=== PATIENT | female | born 1980 | race Caucasian/White ===

== ENCOUNTER 2018-12-06 09:24 | Emergency (ER) | payer OTHER, SELFPAY ==
[2018-12-06 09:25] VITALS: BP 162/93; PULSE 88; RESP 20; TEMP 36.6; O2SAT 98; BMI 24.3
--- NOTE | 2018-12-06 09:48 | RAD_ITS ---
STUDY: X-RAY - CERVICAL SPINE REASON FOR EXAM: Female, 38 years old. Neck pain. TECHNIQUE: 3 view(s) of the cervical spine were obtained. COMPARISON: None FINDINGS: Normal anterior atlantoaxial articulation. Normal odontoid process. There is straightening of the normal cervical lordosis. Normal vertebral bodies and endplates. Normal disc space heights. Normal visualized intervertebral neuroforamina. The soft tissue structures are unremarkable. RAD/Cerv Spine 2 or 3 Views IMPRESSION: Straightening of the normal cervical lordosis. Electronically Signed: Jonas Mckenna MD at 11:13 EST Tel [phone], Service support ,
--- NOTE | 2018-12-06 11:33 | ED.VISSUMM ---
- ER Visit Summary Date of Service: 12/06/18 Chief Complaint: Arm pain History of Present Illness: The patient is a 38 F with left arm pain. This is the third day. It seems worse today. She reports a heaviness in her left arm and tingling down her hand. The pain starts in her left trapezius muscle and radiates down her arm. Worse with moving and typing. She tried Motrin with no improvement. She slept on her neck weird a couple weeks ago and did some aerial yoga recently, but denies any other inciting factors or trauma. No chest pain or shortness of breath. No other weakness or numbness. No rash. Physical Examination: Afebrile and vital signs unremarkable except for a blood pressure of 162/93. No acute distress. HEENT exam shows normal inspection. Neck shows normal inspection and is nontender. She does have some tenderness to palpation over her left trapezius region. Arm is otherwise unremarkable. Good range of motion. Compartments soft. Skin intact. Capillary refill normal. Pulses normal. Good strength. She does have some subjective hand paresthesias. Heart regular. Lungs clear. Test Results: X-rays show straightening of the cervical lordosis but were otherwise unremarkable. Emergency Department Course and Treatment: Patient likely has a radicular pain. She declined pain medicine here. She will continue ibuprofen 800 mg 3 times a day at home. We will add prednisone and Percocet. Her prescription database report was unremarkable. She was referred to primary care follow-up. She may need further imaging or nerve testing as an outpatient. Return for any new or worsening issues. Treatment Plan: As above Disposition: Discharged Impression: 1. Left arm pain This note was generated with [employer] dictation software. It may contain incorrect words, spelling, and punctuation that were not noted in review of the chart prior to signing ED Disposition - Plan for ED Patient: Chief Complaint: General Illness Referrals: No Bustos MD [Primary Care Provider] -
--- NOTE | 2018-12-06 11:36 | ED.DCSUM_ITS ---
- ER Visit Summary Date of Service: 12/06/18 Chief Complaint: Arm pain History of Present Illness: The patient is a 38 F with left arm pain. This is the third day. It seems worse today. She reports a heaviness in her left arm and tingling down her hand. The pain starts in her left trapezius muscle and r adiates down her arm. Worse with moving and typing. She tried Motrin with no improvement. She slept on her neck weird a couple weeks ago and did some aerial yoga recently, but denies any other inciting factors or trauma. No chest pain or shortness of breath. No other weakness or numbness. No rash. Physical Examination: Afebrile and vital signs unremarkable except for a blood pressure of 162/93. No acute distress. HEENT exam shows normal inspection. Neck shows normal inspection and is nontender. She does have some tenderness to palpation over her left trapezius region. Arm is otherwise unremarkable. Good range of motion. Compartments soft. Skin intact. Capillary refill normal. Pulses normal. Good strength. She does have some subjective hand paresthesias. Heart regular. Lungs clear. Test Results: X-rays show straightening of the cervical lordosis but were otherwise unremarkable. Emergency Department Course and Treatment: Patient likely has a radicular pain. She declined pain medicine here. She will continue ibuprofen 800 mg 3 times a day at home. We will add prednisone and Percocet. Her prescription database report was unremarkable. She was referred to primary care follow-up. She may need further imaging or nerve testing as an outpatient. Return for any new or worsening issues. Treatment Plan: As above Disposition: Discharged Impression: 1. Left arm pain This note was generated with [employer] dictation software. It may contain incorrect words, spelling, and punctuation that were not noted in review of the chart prior to signing ED Disposition - Plan for ED Patient: Chief Complaint: General Illness Referrals: No Bustos MD [Primary Care Provider] -
--- NOTE | 2018-12-06 11:36 | ED.DEP ---
ED Disposition - Plan for ED Patient: Chief Complaint: General Illness Instructions: ED Cervical Radiculopathy Prescriptions: Oxycodone HCl/Acetaminophen [Percocet 5/325] 1 tab PO Q6H PRN PRN 3 Days #12 tab PRN Reason: Pain Prednisone 10 mg PO UD #33 tab Referrals: No Bustos MD [Primary Care Provider] -
== END 2018-12-06 11:44 | disposition home or self-care (01) ==
PROVIDERS: Emergency Provider Emergency Medicine; Family Provider Family Medicine; PCP Family Medicine
DX: M79.602 Pain in left arm (principal); M54.2 Cervicalgia; R20.2 Paresthesia of skin; M40.50 Lordosis, unspecified, site unspecified
CPT/HCPCS: 72040; 99282

== ENCOUNTER → 2019-09-13 16:50 | Outpatient (CLI) | payer OTHER, SELFPAY | PROVIDERS: Visit Provider Obstetrics & Gynecology | DX: Z12.4 Encounter for screening for malignant neoplasm of cervix (principal) ==

== ENCOUNTER → 2020-06-29 15:23 | Outpatient (CLI) | payer OTHER, SELFPAY ==
[2020-06-24 09:10] VITALS: BMI 24.3
--- NOTE | 2020-06-29 15:23 | CT_ITS ---
STUDY: CT ABDOMEN AND PELVIS WITH CONTRAST REASON FOR EXAM: Female, 40 years old. RUQ BULGING, OCCASIONAL PAIN RADIATION DOSAGE (If Supplied By Facility): CTDIvol = ( 11.6 ) mGy, DLP = ( 572.46 ) mGycm TECHNIQUE: Transaxial images were obtained from the dome of the diaphragm to the symphysis pubis with oral contrast. Oral and amp; IV GASTROGRAFIN and amp; 100ML ISOVUE 370 was administered. Sagittal and coronal images were reconstructed. Individualized dose optimization techniques were used for this CT. COMPARISON: None. FINDINGS: The visualized lung bases are unremarkable. The visualized portions of the heart are within normal limits. Normal liver. Normal gallbladder and extrahepatic biliary system. Normal spleen. Normal pancreas. Normal bilateral adrenal glands. Normal right kidney. Normal left kidney. Normal visualized stomach. Normal small intestine. Normal colon. The appendix is visualized and appears normal. Normal abdominal aorta. Normal inferior vena cava. Normal retroperitoneum. Normal urinary bladder. Small follicles are seen in both ovaries. Normal abdominal wall. Normal osseous structures. CT/Abdomen/Pelvis WITH Contrast IMPRESSION: Normal enhanced CT of the abdomen and pelvis. Electronically Signed: Jonas Mckenna, at 8:23 EDT , Service support ,
== END ==
PROVIDERS: PCP Family Medicine; Referring Provider Surgery; Visit Provider Surgery
DX: R19.01 Right upper quadrant abdominal swelling, mass and lump (principal); R10.11 Right upper quadrant pain
CPT/HCPCS: 74177; Q9967

== ENCOUNTER → 2020-09-10 13:12 | Outpatient (CLI) | payer OTHER, SELFPAY ==
[2020-08-31 15:20] VITALS: BMI 26.8
--- NOTE | 2020-09-10 13:22 | BI_ITS ---
MAMMOGRAPHY - BILATERAL SCREENING REASON FOR EXAM: Female, 40 years old. Routine annual screening examination. PERTINENT HISTORY: Non-contributory. TECHNIQUE: Digital bilateral breast dinesh (3D mammographic acquisition) in the CC and MLO projections. 2-D mediolateral oblique (MLO) and craniocaudad (CC) views of both breasts were obtained. CAD: Full Field Digital Mammography with Computer Added Detection was performed. COMPARISON: None. Baseline examination. FINDINGS: Breast Composition: The breasts are extremely dense, which lowers the sensitivity of mammography. There are no dominant masses or suspicious calcifications. No other significant abnormalities are identified. BI/SCREEN MAMM (CAD) W/DINESH BILAT IMPRESSION: Negative screening mammogram. Yearly followup mammogram recommended. (A) ASSESSMENT CATEGORY: BIRADS Category 1: Negative. A letter regarding these results will be sent to the patient by the facility within 30 days. Approximately 10% of breast cancers are not detected by mammography. A normal mammogram should not delay biopsy of a clinically suspicious abnormality. [id number] Electronically Signed: Jonas Mckenna, at 14:10 EDT , Service support ,
== END ==
PROVIDERS: PCP Family Medicine; Referring Provider Obstetrics & Gynecology; Visit Provider Obstetrics & Gynecology
DX: Z12.31 Encounter for screening mammogram for malignant neoplasm of breast (principal)
CPT/HCPCS: 77063; 77067

== ENCOUNTER 2021-10-01 11:55 | Outpatient (RCR) | payer OTHER, SELFPAY ==
--- NOTE | 2021-10-01 13:54 | MASS.EVAL_ITS ---
Massage Therapy Evaluation: Initial Evaluation Date: 10/01/2021 SUBJECTIVE: Myah is a 41 year old female who was referred to the [facility] for a massotherapy evaluation by Dr. Martinez with the diagnosis of muscle spasms. She presents today with the symptoms of pain, stiffness and tension in the neck, head, mid back, and having headaches. OBJECTIVE: Upon observation Myah has poor posture with her head and shoulders forward from the neutral position in sitting and standing. After examination and palpation, I found Myah to have high muscle tension with tenderness and myofascial restrictions in her sub occipitals, levator scapulae, trapezius, rhomboids, scalenes, and thoracic paraspinals.She had fascial restrictions, tender points and trigger points throughout the muscle tissue. The first treatment consisted of a one hour massage to her head, neck, shoulders and back with myofascial release, muscle stripping, trigger point compression techniques, and cervical manual traction. ASSESSMENT: I feel that Myah is a good candidate for massotherapy at this time. She had a favorable response to the first treatment with reduction in her muscle aches, pain, and tension. She also had improvement in her cervical flexibility and low back flexibility. PLAN: The plan of care was reviewed with the patient. The patient is to be seen on an as needed basis for a total of ten sessions with the recommendation of once every month for a one hour treatment.
--- NOTE | 2021-11-09 12:57 | MASS.EVAL ---
Massage Therapy Evaluation: Discharge 11/09/21 Myah was seen for a massotherapy evaluation on 10/01/21 with the diagnosis of muscle spasms. She was treated with one session of massage therapy. The patient was unable to schedule more visits for the year of 2020. At this time I am discharging the patient from out care at [facility].
== END 2021-10-01 19:00 | disposition home or self-care (01) ==
LOC: MASS 11:55
PROVIDERS: PCP Family Medicine
DX: M62.838 Other muscle spasm (principal)
CPT/HCPCS: 97124

== ENCOUNTER → 2021-11-16 12:51 | Outpatient (CLI) | payer OTHER, SELFPAY ==
--- NOTE | 2021-11-16 12:54 | BI_ITS ---
MAMMOGRAPHY - BILATERAL SCREENING REASON FOR EXAM: Female, 41 years old. Routine annual screening examination. PERTINENT HISTORY: Non-contributory. TECHNIQUE: Digital bilateral breast dinesh (3D mammographic acquisition) in the CC and MLO projections. 2-D mediolateral oblique (MLO) and craniocaudad (CC) views of both breasts were obtained. CAD: Full Field Digital Mammography with Computer Added Detection was performed. COMPARISON: Comparison is made with prior study 09/10/2020. FINDINGS: Breast Composition: The breasts are heterogeneously dense, which may obscure small masses. There are no dominant masses or suspicious calcifications. No other significant abnormalities are identified. There has been no significant change since the prior study. BI/SCRN MAMM (CAD)W/DINESH BILAT IMPRESSION: Stable bilateral screening mammogram. Yearly follow-up mammogram recommended. (A) ASSESSMENT CATEGORY: BIRADS Category 1: Negative. A letter regarding these results will be sent to the patient by the facility within 30 days. Approximately 10% of breast cancers are not detected by mammography. A normal mammogram should not delay biopsy of a clinically suspicious abnormality. [id number] Electronically Signed: Jonas Mckenna MD at 13:47 EST , Service support ,
== END ==
PROVIDERS: PCP Family Medicine; Referring Provider Family Medicine; Visit Provider Family Medicine
DX: Z12.31 Encounter for screening mammogram for malignant neoplasm of breast (principal)
CPT/HCPCS: 77063; 77067